=== PATIENT | female | born 1945 | race American Indian/Alaskan Native ===

== ENCOUNTER 2018-01-04 13:10 | Emergency (ER) | payer MEDICARE, OTHER ==
[2018-01-04 13:35] VITALS: BP 204/94
[2018-01-04] MEDS ORDERED: NACL 0.9% 1000 ML 1,000 ML IV ONE (13:35)
[2018-01-04 14:45] LABS: Bacteria,Urine 2+ /HPF (Negative); Bilirubin,Urine NEG (Negative); Blood,Urine SM (Negative); Color,Urine Straw (Yellow); Mucus,Urine FEW /HPF; Protein,Urine <15 mg/dL mg/dL (Negative); Urobilinogen,Urine < 2.0 mg/dL (<2.0)
[2018-01-04 15:08] LABS: Basophils # (Auto) 0.1 K/mm3 (0.0-0.1); Eosinophils % (Auto) 0.4 % (0.0-4.3); Hematocrit 40.8 % (30.3-42.9); Hemoglobin 13.5 gm/dl (10.1-14.3); Lymphocytes # (Auto) 1.6 K/mm3 (1.2-5.4); Lymphocytes % (Auto) 32.1 % (13.4-35.0); Mean Corpuscular HGB Conc 33 % (30-34); Mean Corpuscular Hemoglobin 29 pg (28-32); Mean Corpuscular Volume 89 fl (79-97); Monocytes # (Auto) 0.4 K/mm3 (0.0-0.8); Monocytes % (Auto) 8.1 % (0.0-7.3); Platelet Count 294 K/mm3 (140-440); Red Blood Count 4.58 M/mm3 (3.65-5.03); Red Cell Distribution Width 14.9 % (13.2-15.2)
[2018-01-04 15:24] LABS: Alanine Aminotransferase 15 units/L (7-56); Albumin 4.2 g/dL (3.9-5); BUN/Creatinine Ratio 17; Blood Urea Nitrogen 12 mg/dL (7-17); Calcium 10.1 mg/dL (8.4-10.2); Hemolysis Index 2
--- NOTE | 2018-01-04 17:10 | Emergency Department Report ---
ED Abdominal Pain HPI - General Chief Complaint: Abdominal Pain Stated Complaint: SEVERE PAIN/RIGHT SIDE Time Seen by Provider: 01/04/18 16:48 Source: patient Mode of arrival: Ambulatory Limitations: No Limitations - History of Present Illness Initial Comments: 72-year-old female with a past medical history hypertension and no previous abdominal surgeries presents to the hospital complaining of right lower quadrant pain that feels like gas. Symptoms started last night. Patient states that her right lower quadrant pain was so intense that she had difficulty walking and radiates to her rectum. Pain also moves around her abdomen. She is now pain free. Patient thinks that the pain is due to eating food for the last 2 weeks she had been told previously by her PMD not to eat fried foods. Patient also states she's been drinking more energy drinks lately for little boost in her energy. She did have energy drink this morning reports urinary frequency today. She has been noncompliant with her Lorsartan/Hctz for the past 3 days and has had to machine operator picker her refill at the pharmacy. She denies headache, chest pain, shortness of breath, dysuria, fever, nausea, vomiting, or diarrhea. Last bowel movement 2-3 days ago. Patient recently moved to the [facility] and does not have a PCP locally - Related Data Previous Rx's Medication Instructions Recorded Last Taken Type Mag Hydrox/Aluminum Hyd/Simeth 20 ml PO QID PRN #1 bottle 01/04/18 Unknown Rx [Maalox Advanced Suspension] Nitrofurantoin Monohyd/M-Cryst 100 mg PO BID #10 capsule 01/04/18 Unknown Rx [Macrobid 100 mg Capsule] Allergies Allergy/AdvReac Type Severity Reaction Status Date / Time No Known Allergies Allergy Unverified 01/04/18 13:35 ED Review of Systems ROS: Stated complaint: SEVERE PAIN/RIGHT SIDE Other details as noted in HPI Comment: All other systems reviewed and negative ED Past Medical Hx - Past Medical History Previous Medical History?: No Hx Hypertension: Yes - Surgical History Past Surgical History?: No - Social History Smoking Status: Never Smoker Substance Use Type: None - Medications Home Medications: Home Medications Medication Instructions Recorded Confirmed Last Taken Type Mag Hydrox/Aluminum Hyd/Simeth 20 ml PO QID PRN #1 bottle 01/04/18 Unknown Rx [Maalox Advanced Suspension] Nitrofurantoin Monohyd/M-Cryst 100 mg PO BID #10 capsule 01/04/18 Unknown Rx [Macrobid 100 mg Capsule] ED Physical Exam - General Limitations: No Limitations - Other Other exam information: General: No limitations, patient is alert in no acute distress Head exam: Atraumatic, normocephalic Eyes exam: Normal appearance ENT: Moist mucous membrane, normal oropharynx Neck exam: Normal inspection, full range of motion, no meningismus nontender Respiratory exam: Clear to auscultation bilateral, no wheezes, rales, crackles Cardiovascular: Normal rate and rhythm, normal heart sounds Abdomen: Soft, nondistended, and nontender, with normal bowel sounds, no rebound, or guarding Extremity: Full range of motion normal inspection no deformity Back: Normal Inspection, full range of motion, no tenderness Neurologic: Alert, oriented x3, cranial nerves intact, no motor or sensory deficit Psychiatric: normal affect, normal mood Skin: Warm, dry, intact ED Course Vital Signs 01/04/18 13:30 Temperature 97.6 F Pulse Rate 71 Respiratory 16 Rate Blood Pressure 204/94 O2 Sat by Pulse 98 Oximetry - Reevaluation(s) Reevaluation #1: 01/04/18 17:10 Repeat BP 158/70 without meds in ED ED Medical Decision Making - Lab Data Result diagrams: 01/04/18 14:35 01/04/18 14:35 Lab Results 01/04/18 01/04/18 01/04/18 Range/Units 14:07 14:35 14:35 WBC 5.0 (4.5-11.0) K/mm3 RBC 4.58 (3.65-5.03) M/mm3 Hgb 13.5 (10.1-14.3) gm/dl Hct 40.8 (30.3-42.9) % MCV 89 (79-97) fl MCH 29 (28-32) pg MCHC 33 (30-34) % RDW 14.9 (13.2-15.2) % Plt Count 294 (140-440) K/mm3 Lymph % (Auto) 32.1 (13.4-35.0) % [place] % (Auto) 8.1 H (0.0-7.3) % Eos % (Auto) 0.4 (0.0-4.3) % Baso % (Auto) 1.0 (0.0-1.8) % Lymph # 1.6 (1.2-5.4) K/mm3 Whitley # 0.4 (0.0-0.8) K/mm3 Eos # 0.0 (0.0-0.4) K/mm3 Baso # 0.1 (0.0-0.1) K/mm3 Seg Neutrophils % 58.4 (40.0-70.0) % Seg Neutrophils # 2.9 (1.8-7.7) K/mm3 Sodium 140 (137-145) mmol/L Potassium 3.8 (3.6-5.0) mmol/L Chloride 99.3 (98-107) mmol/L Carbon Dioxide 25 (22-30) mmol/L Anion Gap 20 mmol/L BUN 12 (7-17) mg/dL Creatinine 0.7 (0.7-1.2) mg/dL Estimated GFR > 60 ml/min BUN/Creatinine Ratio 17 % Glucose 74 (65-100) mg/dL Calcium 10.1 (8.4-10.2) mg/dL Total Bilirubin 0.90 (0.1-1.2) mg/dL AST 19 (5-40) units/L ALT 15 (7-56) units/L Alkaline Phosphatase 83 (35-129) units/L Total Protein 8.2 (6.3-8.2) g/dL Albumin 4.2 (3.9-5) g/dL Albumin/Globulin Ratio 1.1 % Urine Color Straw (Yellow) Urine Turbidity Clear (Clear) Urine pH 6.0 (5.0-7.0) Ur Specific [place] 1.002 L (1.003-1.030) Urine Protein <15 mg/dl (Negative) mg/dL Urine Glucose (UA) Neg (Negative) mg/dL Urine Ketones Neg (Negative) mg/dL Urine Blood Sm (Negative) Urine Nitrite Neg (Negative) Urine Bilirubin Neg (Negative) Urine Urobilinogen < 2.0 (<2.0) mg/dL Ur Leukocyte Esterase Neg (Negative) Urine WBC (Auto) 1.0 (0.0-6.0) /HPF Urine RBC (Auto) 2.0 (0.0-6.0) /HPF U Epithel Cells (Auto) 1.0 (0-13.0) /HPF Urine Bacteria (Auto) 2+ (Negative) /HPF Urine Mucus Few /HPF - Medical Decision Making Patient is nontender exam. Given urinary frequency complaints will be treated with Macrobid. Patient advised not to take any energy drinks because the caffeine may cause increase in her blood pressure, heart rate, intestinal cramps, and urinary frequency Patient encouraged to fill her BP medications and restart Will be given medication for gas as well Patient does not have any signs or symptoms of obstruction and no previous surgical history - Differential Diagnosis UTI, dyspepsia, constipation, gas, gallstones, renal colic, appendicitis Critical Care Time: No Critical care attestation.: If time is entered above; I have spent that time in minutes in the direct care of this critically ill patient, excluding procedure time. ED Disposition Clinical Impression: Intestinal cramps, Increased urinary frequency, HTN (hypertension), Noncompliance with medication regimen Disposition: TO HOME OR SELFCARE Is pt being admited?: No Does the pt Need Aspirin: No Condition: Stable Instructions: Abdominal Pain (ED), Hypertension (ED), Urinary Tract Infection in Women (ED) Additional Instructions: Take the medication as prescribed. Avoid fried food. Do not use energy drinks because the caffeine may cause increase in blood pressure, heart rate, intestinal cramps, and urination. Follow up with the primar care doctor or clinic provided. Fill your blood pressure prescription and restart your blood pressure medication. Prescriptions: Mag Hydrox/Aluminum Hyd/Simeth [Maalox Advanced Suspension] 20 ml PO QID PRN #1 bottle PRN Reason: Gas Pain Nitrofurantoin Monohyd/M-Cryst [Macrobid 100 mg Capsule] 100 mg PO BID #10 capsule Referrals: TYSON WOLFE MD [Staff Physician] - 3-5 Days [facility] [Provider Group] - 3-5 Days Time of Disposition: 17:15
== END 2018-01-04 17:21 | disposition home or self-care (01) ==
LOC: EDBD → ED 13:10
DX: N39.0 Urinary tract infection, site not specified (principal); I10 Essential (primary) hypertension; R10.9 Unspecified abdominal pain
CPT/HCPCS: 36415; 80053; 81001; 85025; 99283

== ENCOUNTER 2018-01-11 07:37 | Emergency (ER) | payer MEDICARE, OTHER ==
--- NOTE | 2018-01-11 10:30 | Emergency Department Report ---
Chief Complaint: Abdominal Pain Stated Complaint: SIDE PAIN Time Seen by Provider: 01/11/18 10:19 - HPI History of Present Illness: 73 yo AA F presents to the ED with the complaint of RLQ and right flank pain that has been going on for 1 week. No N/V, dysuria, vaginal bleeding, fever. She was seen here for the same symptoms on 01/04 and was diagnosed with HTN, Abd pain, UTI. She took the macrobid and an antacid without much relief. She denies any significant past medical history. She says that she just moved to the area and therefore does not have a primary care physician. - ROS Review of Systems: Positive for abdominal pain and flank pain Negative for fever, nausea, vomiting - Exam Vital Signs: Vital Signs 01/11/18 07:59 Temperature 97.6 F Pulse Rate 79 Respiratory 16 Rate Blood Pressure 165/77 O2 Sat by Pulse 100 Oximetry Physical Exam: There is some reproducible tenderness to palpation to the right lower quadrant. Heart and lung sounds are normal to auscultation. Patient does not appear to be in any acute distress. MSE screening note: Focused history and physical exam performed. Due to findings the following was ordered: I have ordered a CBC, CMP and urinalysis. I have ordered a two-view abdominal x -ray. ED Disposition for MSE Condition: Stable Instructions: Abdominal Pain (ED) Referrals: PRIMARY CARE [Primary Care Provider] - 3-5 Days
[2018-01-11 10:49] LABS: Eosinophils % (Auto) 0.4 % (0.0-4.3); Hemoglobin 13.2 gm/dl (10.1-14.3); Lymphocytes # (Auto) 1.5 K/mm3 (1.2-5.4); Lymphocytes % (Auto) 31.1 % (13.4-35.0); Mean Corpuscular HGB Conc 34 % (30-34); Mean Corpuscular Hemoglobin 30 pg (28-32); Mean Corpuscular Volume 89 fl (79-97); Monocytes # (Auto) 0.4 K/mm3 (0.0-0.8); Monocytes % (Auto) 8.9 % (0.0-7.3); Platelet Count 290 K/mm3 (140-440); Red Blood Count 4.39 M/mm3 (3.65-5.03); Red Cell Distribution Width 14.8 % (13.2-15.2)
[2018-01-11 11:04] LABS: Alanine Aminotransferase 11 units/L (7-56); Albumin 3.8 g/dL (3.9-5); BUN/Creatinine Ratio 15; Blood Urea Nitrogen 9 mg/dL (7-17); Calcium 9.5 mg/dL (8.4-10.2); Hemolysis Index 40
--- NOTE | 2018-01-11 11:36 | XRay Report ---
ABDOMEN, 2 views: History: Abdominal pain. There is no evidence of free air beneath the diaphragms. The gas pattern within the abdomen is unremarkable. There is no evidence of bowel dilatation, significant air-fluid levels, or pathologic calcifications. Organ shadows are unremarkable. Severe degenerative changes are noted in both hips and SI joints, right greater than left. IMPRESSION: Unremarkable abdomen.
[2018-01-11 14:40] VITALS: BP 172/85
[2018-01-11 14:51] LABS: Bilirubin,Urine NEG (Negative); Blood,Urine SM (Negative); Color,Urine Yellow (Yellow); Mucus,Urine FEW /HPF; Protein,Urine <15 mg/dL mg/dL (Negative); Urobilinogen,Urine < 2.0 mg/dL (<2.0); WBC,Urine < 1.0 /HPF (0.0-6.0)
--- NOTE | 2018-01-11 15:14 | Cat Scan Report ---
CT ABDOMEN PELVIS WITH CONTRAST: HISTORY: Left flank pain, abdominal pain. COMPARISON: none. TECHNIQUE: Helical CT in 1.25mm intervals following IV contrast. Sagittal and coronal reconstructions. FINDINGS: Lung bases: Normal. Liver: Within normal limits. 1 cm right hepatic lobe cyst is noted. Biliary system: There a few tiny calcified gallstones within the gallbladder. No biliary dilatation or inflammation. Pancreas: Normal. Spleen: Normal. Kidneys/ureters/bladder: Within normal limits. No evidence for nephrolithiasis or hydronephrosis. Adrenal glands: Normal. Aorta: Normal. Intestines: No oral contrast was administered which limits this exam. There are multiple diverticula in the distal colon. No acute inflammatory changes are appreciated to suggest acute diverticulitis. Appendix: Normal. Pelvic viscera: The uterus has been surgically removed or is small in size. No adnexal cyst or mass. Ascites: None. Adenopathy: None. Musculoskeletal: Moderate thoracolumbar spondylosis and severe osteoarthritis of both hips. No fracture or suspicious bony lesion. IMPRESSION: No acute process identified. No clear explanation for left flank pain. No evidence for nephrolithiasis or hydronephrosis. Diverticulosis of the distal colon. No findings to suggest acute diverticulitis. Cholelithiasis. Question hysterectomy versus small uterus.
--- NOTE | 2018-01-11 16:39 | Emergency Department Report ---
ED Abdominal Pain HPI - General Chief Complaint: Abdominal Pain Stated Complaint: SIDE PAIN Time Seen by Provider: 01/11/18 10:19 Source: patient Mode of arrival: Ambulatory Limitations: No Limitations - History of Present Illness Initial Comments: This is a 73-year-old female nontoxic, well nourished in appearance, no acute signs of distress presents to the ED with c/o of right lower abdominal pain 1 week. Patient denies any vomiting or nausea. Patient describes abdominal pain as cramping and aching with level of 3/10. Patient stated that abdominal pain radiates to right lower extremity. Patient denies chest pain, short of breath, fever, chills, headache, stiff neck, numbness or tingling. Patient denies any diarrhea or constipation. Patient denies any vaginal bleeding or discharge. Patient denies any recent travels. Patient denies any allergies. PMH includes HTN. MD Complaint: abdominal pain -: week(s) (1) Location: RLQ Radiation: other (right leg) Migration to: no migration Severity: mild Severity scale (0 -10): 3 Quality: aching Consistency: constant Improves With: nothing Worsens With: nothing Associated Symptoms: denies: nausea, vomiting, diarrhea, fever, chills, constipation, dysuria, hematemesis, hematochezia, melena, hematuria, anorexia, syncope - Related Data Previous Rx's Medication Instructions Recorded Last Taken Type Mag Hydrox/Aluminum Hyd/Simeth 20 ml PO QID PRN #1 bottle 01/04/18 Unknown Rx [Maalox Advanced Suspension] Nitrofurantoin Monohyd/M-Cryst 100 mg PO BID #10 capsule 01/04/18 Unknown Rx [Macrobid 100 mg Capsule] Cyclobenzaprine [Flexeril] 10 mg PO BID PRN #14 tablet 01/11/18 Unknown Rx Ibuprofen [Motrin] 600 mg PO Q8H PRN #30 tablet 01/11/18 Unknown Rx Allergies Allergy/AdvReac Type Severity Reaction Status Date / Time No Known Allergies Allergy Unverified 01/04/18 13:35 ED Review of Systems ROS: Stated complaint: SIDE PAIN Other details as noted in HPI Constitutional: denies: chills, fever Eyes: denies: eye pain, eye discharge, vision change ENT: denies: ear pain, throat pain Respiratory: denies: cough, shortness of breath, wheezing Cardiovascular: denies: chest pain, palpitations Endocrine: no symptoms reported Gastrointestinal: abdominal pain. denies: nausea, vomiting, diarrhea Genitourinary: denies: urgency, dysuria, discharge Musculoskeletal: back pain. denies: joint swelling, arthralgia Skin: denies: rash, lesions Neurological: denies: headache, weakness, paresthesias Psychiatric: denies: anxiety, depression Hematological/Lymphatic: denies: easy bleeding, easy bruising ED Past Medical Hx - Past Medical History Hx Hypertension: Yes - Surgical History Past Surgical History?: No - Social History Smoking Status: Never Smoker Substance Use Type: None - Medications Home Medications: Home Medications Medication Instructions Recorded Confirmed Last Taken Type Mag Hydrox/Aluminum Hyd/Simeth 20 ml PO QID PRN #1 bottle 01/04/18 Unknown Rx [Maalox Advanced Suspension] Nitrofurantoin Monohyd/M-Cryst 100 mg PO BID #10 capsule 01/04/18 Unknown Rx [Macrobid 100 mg Capsule] Cyclobenzaprine [Flexeril] 10 mg PO BID PRN #14 tablet 01/11/18 Unknown Rx Ibuprofen [Motrin] 600 mg PO Q8H PRN #30 tablet 01/11/18 Unknown Rx ED Physical Exam - General Limitations: No Limitations General appearance: alert, in no apparent distress - Head Head exam: Present: atraumatic, normocephalic - Eye Eye exam: Present: normal appearance Pupils: Present: normal accommodation - ENT ENT exam: Present: normal exam, mucous membranes moist - Neck Neck exam: Present: normal inspection, full ROM. Absent: tenderness, meningismus, lymphadenopathy - Respiratory Respiratory exam: Present: normal lung sounds bilaterally. Absent: respiratory distress, wheezes, rales, rhonchi, stridor, chest wall tenderness, accessory muscle use, decreased breath sounds, prolonged expiratory - Cardiovascular Cardiovascular Exam: Present: regular rate, normal rhythm, normal heart sounds. Absent: bradycardia, tachycardia, irregular rhythm, systolic murmur, diastolic murmur, rubs, gallop - GI/Abdominal GI/Abdominal exam: Present: soft, normal bowel sounds. Absent: distended, tenderness, guarding, rebound, rigid, diminished bowel sounds - Expanded GI/Abdominal Exam Expanded GI/Abdominal exam: Absent: psoas sign, obturator sign, heel tap sign, Biswas's sign, Rovsing's sign, tenderness at [place]bur[place]'s Point, ascites - Rectal Rectal exam: Present: deferred - Extremities Exam Extremities exam: Present: normal inspection, full ROM, normal capillary refill - Back Exam Back exam: Present: normal inspection, full ROM, paraspinal tenderness (right sided lumbar paraspinal area). Absent: tenderness, CVA tenderness (R), CVA tenderness (L), muscle spasm, vertebral tenderness, rash noted - Neurological Exam Neurological exam: Present: alert, oriented X3, normal gait - Psychiatric Psychiatric exam: Present: normal affect, normal mood - Skin Skin exam: Present: warm, dry, intact, normal color. Absent: rash ED Course Vital Signs 01/11/18 01/11/18 07:59 14:39 Temperature 97.6 F Pulse Rate 79 65 Respiratory 16 18 Rate Blood Pressure 165/77 Blood Pressure 172/85 [Left] O2 Sat by Pulse 100 100 Oximetry - Reevaluation(s) Reevaluation #1: 01/11/18 16:46 Patient is speaking in full sentences with no signs of distress noted. - Consultations Consultation #1: 01/11/18 16:47 Patient has been consulted with Dr. Ackerman about patient history, physical exam, and labs/CT results and examined and screened patient and agrees to ED plan of care and discharge plan of care. ED Medical Decision Making - Lab Data Result diagrams: 01/11/18 10:34 01/11/18 10:34 - Medical Decision Making This is a 73-year-old female that presents with right sided abdomen/lumbar pain. Patient is stable was examined by me. Upon exam, patient points to the lateral lumbar/abdomen area. Patient stated it radiates to right leg. There is no spinal tenderness. There is no cauda equina syndrome during examination. No bladder or bowel instability. Patient received Toradol 15 mg IV in the ED which preceded his symptoms has resolved and subsided. Labs unremarkable. CT with contrast of abdomen unremarkable. Patient is discharged with muscle relaxant and Motrin. Patient was instructed not to operate any machinery while taking muscle relaxant as they cause her drowsiness. Patient was referred to Follow-up with a primary care doctor in 3-5 days or if symptoms worsen and continue return to emergency room as soon as possible. At time of discharge, the patient does not seem toxic or ill in appearance. No acute signs of distress noted. Patient agrees to discharge treatment plan of care. No further questions noted by the patient. This chart is dictated with using [employer]ation [employer] Critical care attestation.: If time is entered above; I have spent that time in minutes in the direct care of this critically ill patient, excluding procedure time. ED Disposition Clinical Impression: Abdominal pain Qualifiers: Abdominal location: right lower quadrant Qualified Code(s): R10.31 - Right lower quadrant pain Low back pain Qualifiers: Chronicity: acute Back pain laterality: right Sciatica presence: with sciatica Sciatica laterality: sciatica of right side Qualified Code(s): M54.41 - Lumbago with sciatica, right side Disposition: TO HOME OR SELFCARE Is pt being admited?: No Does the pt Need Aspirin: No Condition: Stable Instructions: Abdominal Pain (ED), Cyclobenzaprine (By mouth), Ibuprofen (By mouth) Additional Instructions: Follow-up with your primary care doctor in 3-5 days or if symptoms worsen such as bladder or bowel stability, chest pain, short of breath, numbness or tingling sensation in extremities, headache, dizziness, visual changes, nausea vomiting, or abdominal pain, return back to emergency room as was possible. Take ibuprofen and Flexeril as prescribed. Do not operate heavy machinery while taking Flexeril due to sedation Prescriptions: Cyclobenzaprine [Flexeril] 10 mg PO BID PRN #14 tablet PRN Reason: Muscle Spasm Ibuprofen [Motrin] 600 mg PO Q8H PRN #30 tablet PRN Reason: Pain Referrals: PRIMARY MD JACKIE [Primary Care Provider] - 3-5 Days MARY WEBB MD [Staff Physician] - 3-[address] [facility] [Outside] - 3-5 Days [facility] [Outside] - 3-5 Days Forms: Work/School Release Form(ED)
[2018-01-11] MEDS ORDERED: TORADOL IV ONE (16:46)
== END 2018-01-11 17:06 | disposition home or self-care (01) ==
LOC: ED 07:37
DX: R10.31 Right lower quadrant pain (principal); M54.5 Low back pain; I10 Essential (primary) hypertension
CPT/HCPCS: 36415; 74019; 74177; 80053; 81001; 85025; 96374; 99284; J1885; Q9967

== ENCOUNTER 2021-02-16 18:57 | Emergency (ER) | payer MEDICARE, OTHER ==
[2021-02-16] MEDS ORDERED: ONDANSETRON 4 MG ODT TAB PO ONE (23:56)
[2021-02-16] MEDS ORDERED: oxyCODONE /ACETAMINOPHEN 5-325MG TAB PO ONE (23:56)
[2021-02-16] MEDS ORDERED: FAMOTIDINE 20 MG TAB PO ONE (23:57)
--- NOTE | 2021-02-17 00:05 | Emergency Department Report ---
ED Abdominal Pain HPI - General Chief Complaint: Abdominal Pain Stated Complaint: AB PAIN Source: patient Mode of arrival: Ambulatory Limitations: No Limitations - History of Present Illness Initial Comments: Patient is a 76-year-old -[place] female with a history of hypertension, chronic osteoarthritis, chronic back pain and foi-yozebbd-sqqdnxewc diabetes who presents to the ED with complaint of acute onset persistent bilateral flank pain for the last 2 weeks, worse in the last 4 days. Patient states that the pain is persistent and worse with any physical activity. Patient states that she had earlier been evaluated at an urgent care clinic but was advised to come to the ED for further evaluation because of a persistent pain. Patient denies nausea and vomiting, diarrhea, dysuria, urinary frequency and urgency, chest pain, shortness of breath, dizziness, syncope, numbness and tingling or weakness of upper and lower extremities bilaterally, neck pain, heavy lifting, fall or traumatic injury, fever and chills, nausea and vomiting. MD Complaint: abdominal pain, flank pain (bilateral flank pain) -: Sudden, week(s) (2) Location: epigastric, L flank, R flank, bilateral flank Radiation: epigastric, L flank, R flank, bilateral flank Migration to: no migration Severity: severe Severity scale (0 -10): 8 Quality: cramping, aching, sharp Consistency: constant Improves With: nothing Worsens With: nothing Associated Symptoms: denies other symptoms, nausea, anorexia. denies: vomiting, diarrhea, fever, chills, constipation, dysuria, hematemesis, hematochezia, melena, hematuria, syncope - Related Data Previous Rx's Medication Instructions Recorded Last Taken Type Mag Hydrox/Aluminum Hyd/Simeth 20 ml PO QID PRN #1 bottle 01/04/18 Unknown Rx [Maalox Advanced Suspension] Nitrofurantoin Monohyd/M-Cryst 100 mg PO BID #10 capsule 01/04/18 Unknown Rx [Macrobid 100 mg Capsule] Cyclobenzaprine [Flexeril] 10 mg PO BID PRN #14 tablet 01/11/18 Unknown Rx Ibuprofen [Motrin] 600 mg PO Q8H PRN #30 tablet 01/11/18 Unknown Rx Baclofen 20 mg PO Q12H PRN #24 tablet 02/17/21 Unknown Rx Ibuprofen [Motrin] 800 mg PO Q8HR PRN #30 tablet 02/17/21 Unknown Rx traMADoL [Ultram] 50 mg PO Q6HR PRN #12 tablet 02/17/21 Unknown Rx Allergies Allergy/AdvReac Type Severity Reaction Status Date / Time No Known Allergies Allergy Unverified 01/04/18 13:35 ED Review of Systems ROS: Stated complaint: AB PAIN Other details as noted in HPI Constitutional: denies: chills, fever Eyes: denies: eye pain, eye discharge, vision change ENT: denies: ear pain, throat pain Respiratory: denies: cough, shortness of breath, wheezing Cardiovascular: denies: chest pain, palpitations Endocrine: no symptoms reported Gastrointestinal: abdominal pain, nausea. denies: diarrhea Genitourinary: denies: urgency, dysuria, discharge Musculoskeletal: denies: back pain, joint swelling, arthralgia Skin: denies: rash, lesions Neurological: denies: headache, weakness, paresthesias Psychiatric: denies: anxiety, depression Hematological/Lymphatic: denies: easy bleeding, easy bruising ED Past Medical Hx - Past Medical History Hx Hypertension: Yes Hx Diabetes: Yes (prediabetes) Hx Arthritis: Yes - Social History Smoking Status: Never Smoker Substance Use Type: None - Medications Home Medications: Home Medications Medication Instructions Recorded Confirmed Last Taken Type Mag Hydrox/Aluminum Hyd/Simeth 20 ml PO QID PRN #1 bottle 01/04/18 Unknown Rx [Maalox Advanced Suspension] Nitrofurantoin Monohyd/M-Cryst 100 mg PO BID #10 capsule 01/04/18 Unknown Rx [Macrobid 100 mg Capsule] Cyclobenzaprine [Flexeril] 10 mg PO BID PRN #14 tablet 01/11/18 Unknown Rx Ibuprofen [Motrin] 600 mg PO Q8H PRN #30 tablet 01/11/18 Unknown Rx Baclofen 20 mg PO Q12H PRN #24 tablet 02/17/21 Unknown Rx Ibuprofen [Motrin] 800 mg PO Q8HR PRN #30 tablet 02/17/21 Unknown Rx traMADoL [Ultram] 50 mg PO Q6HR PRN #12 tablet 02/17/21 Unknown Rx ED Physical Exam - General Limitations: No Limitations General appearance: alert, in no apparent distress - Head Head exam: Present: atraumatic, normocephalic, normal inspection - Eye Eye exam: Present: normal appearance, PERRL, EOMI Pupils: Present: normal accommodation - ENT ENT exam: Present: normal exam, normal orophraynx, mucous membranes moist, TM's normal bilaterally, normal external ear exam - Neck Neck exam: Present: normal inspection, full ROM - Respiratory Respiratory exam: Present: normal lung sounds bilaterally. Absent: respiratory distress, wheezes, rales, rhonchi, stridor, chest wall tenderness, accessory muscle use, decreased breath sounds, prolonged expiratory - Cardiovascular Cardiovascular Exam: Present: regular rate, normal rhythm, normal heart sounds. Absent: systolic murmur, diastolic murmur, rubs, gallop - GI/Abdominal GI/Abdominal exam: Present: soft, tenderness (Bilateral flank tenderness as well as epigastric tenderness), normal bowel sounds. Absent: guarding, rebound, hyperactive bowel sounds, hypoactive bowel sounds - Extremities Exam Extremities exam: Present: normal inspection, full ROM, normal capillary refill - Back Exam Back exam: Present: normal inspection, full ROM. Absent: tenderness, CVA tenderness (R), CVA tenderness (L), muscle spasm, paraspinal tenderness - Neurological Exam Neurological exam: Present: alert, oriented X3, CN II-XII intact, normal gait, reflexes normal - Psychiatric Psychiatric exam: Present: normal affect, normal mood - Skin Skin exam: Present: warm, dry, intact, normal color. Absent: rash ED Course Vital Signs 02/16/21 23:45 Temperature 98.1 F Pulse Rate 74 Respiratory 18 Rate Blood Pressure 153/73 O2 Sat by Pulse 98 Oximetry ED Medical Decision Making - Lab Data Result diagrams: 02/16/21 23:59 02/16/21 23:59 - Radiology Data Radiology results: report reviewed, image reviewed [address] [address] Cat Scan Report Signed Patient: NICOLLE GANDHI MR#: [id number] 9 : 1945 Acct:[id number] Age/Sex: 76 / F ADM Date: 02/16/21 Loc: ED Attending Dr: Ordering Physician: ANTONY TEMPLE Date of Service: 02/16/21 Procedure(s): CT abdomen pelvis w con Accession Number(s): [id number] cc: ANTONY TEMPLE CT ABDOMEN AND PELVIS WITH CONTRAST INDICATION / CLINICAL INFORMATION: bilateral flank. TECHNIQUE: Axial CT images were obtained through the abdomen and pelvis after Omnipaque 300, 100 cc [address] scans at this location are performed using CT dose reduction for ALARA by means of automated exposure control. COMPARISON: 01/11/2018. FINDINGS: LOWER CHEST: No significant abnormality. LIVER: 8 mm right hepatic cyst is unchanged. GALLBLADDER: Calcified gallstones. BILE DUCTS: No significant abnormality. PANCREAS: No significant abnormality. SPLEEN: No significant abnormality. ADRENALS: No significant abnormality. RIGHT KIDNEY / URETER: No significant abnormality. LEFT KIDNEY / URETER: No significant abnormality. STOMACH / SMALL BOWEL: No significant abnormality. COLON: Scattered noninflamed diverticulosis. APPENDIX: No significant abnormality. PERITONEUM: No free fluid. No free air. No fluid collection. LYMPH NODES: No significant adenopathy. VASCULAR STRUCTURES: No significant abnormality. URINARY BLADDER: No significant abnormality. REPRODUCTIVE ORGANS: No significant abnormality. ADDITIONAL FINDINGS: None. SKELETAL SYSTEM: Previous bilateral hip replacement. IMPRESSION: 1. Noninflamed colonic diverticulosis. 2. Calcified gallstones. Signer Name: Kenrick Stearns MD Signed: 02/17/2021 1:24 AM Workstation Name: [id number] Transcribed By: ES Dictated By: Kenrick Stearns MD Electronically Authenticated By: Kenrick Stearns MD Signed Date/Time: 02/17/21123 DD/ 9 TD/TT: - Medical Decision Making This is a 76-year-old -[place] female with a history of hypertension, chronic osteoarthritis, chronic back pain and ktd-gxtrysr-rbosmcnpd diabetes who presents to the ED with complaint of acute onset persistent bilateral flank pain for the last 2 weeks, worse in the last 4 days. Patient states that the pain is persistent and worse with any physical activity. Patient states that she had earlier been evaluated at an urgent care clinic but was advised to come to the ED for further evaluation because of a persistent pain. In the ED, patient is alert and oriented x3 and is not in any distress. Patient was treated for pain in the ED and also given antiemetics and antacids. Abdomen pelvis CT scan with contrast showed no acute abnormalities. Lab test results were reviewed and are all nonactionable including urinalysis. On reevaluation, patient's pain is well controlled medications. Patient symptoms are likely due to muscle spasm or muscle strain of her back. Patient was therefore discharged home on pain medications and muscle relaxant and was advised to follow-up with her primary care physician in 7 to 10 days for reevaluation or return to the ED immediately if symptoms get worse - Differential Diagnosis muscle spasm; muscle strain; UTI; Kidney stones; GERD Critical care attestation.: If time is entered above; I have spent that time in minutes in the direct care of this critically ill patient, excluding procedure time. ED Disposition Clinical Impression: Acute flank pain, Acute epigastric pain, Spasm of muscle of lower back GERD (gastroesophageal reflux disease) Qualifiers: Esophagitis presence: esophagitis presence not specified Qualified Code(s): K21.9 - Gastro-esophageal reflux disease without esophagitis Disposition: HOME / SELF CARE / HOMELESS Is pt being admited?: No Does the pt Need Aspirin: No Condition: Stable Instructions: Abdominal Pain, Adult, [id number], Flank Pain, Adult, [id number], Abdominal Pain (ED), Muscle Cramps and Spasms, [id number], Gastroesophageal Reflux Disease, Adult, [id number] Additional Instructions: All lab test results were reviewed and are all nonactionable. Abdomen pelvis CT scan with contrast showed no acute abnormalities. Symptoms are likely due to muscle spasm and muscle strain of your back. Therefore take medication with food, drink plenty of fluids and follow-up with your primary care physician in 5 to 7 days for reevaluation. Return to the ED immediately if symptoms get worse. Prescriptions: Baclofen 20 mg PO Q12H PRN #24 tablet PRN Reason: Muscle Spasm Ibuprofen [Motrin] 800 mg PO Q8HR PRN #30 tablet PRN Reason: Pain , Severe (7-10) traMADoL [Ultram] 50 mg PO Q6HR PRN #12 tablet PRN Reason: Pain Referrals: [facility] [Provider Group] - 3-5 Days Time of Disposition: 02:52 Print Language: MONGOLIAN
[2021-02-17 00:35] LABS: Basophils # (Auto) 0.1 K/mm3 (0.0-0.1); Basophils % (Auto) 1.1 % (0.0-1.8); Eosinophils # (Auto) 0.1 K/mm3 (0.0-0.4); Eosinophils % (Auto) 0.6 % (0.0-4.3); Hematocrit 40.6 % (30.3-42.9); Hemoglobin 13.7 gm/dl (10.1-14.3); Lymphocytes # (Auto) 2.9 K/mm3 (1.2-5.4); Lymphocytes % (Auto) 31.6 % (13.4-35.0); Mean Corpuscular HGB Conc 34 % (30-34); Mean Corpuscular Volume 89 fl (79-97); Monocytes # (Auto) 0.9 K/mm3 (0.0-0.8); Platelet Count 344 K/mm3 (140-440); Red Blood Count 4.58 M/mm3 (3.65-5.03); Red Cell Distribution Width 15.1 % (13.2-15.2)
[2021-02-17 01:00] LABS: Alanine Aminotransferase 15 units/L (7-56); Albumin 4.3 g/dL (3.9-5); BUN/Creatinine Ratio 15; Blood Urea Nitrogen 15 mg/dL (7-17); Calcium 10.3 mg/dL (8.4-10.2); Hemolysis Index 0
[2021-02-17 01:04] LABS: Bacteria,Urine 4+ /HPF (Negative); Bilirubin,Urine NEG (Negative); Blood,Urine MOD (Negative); Color,Urine Yellow (Yellow); Mucus,Urine FEW /HPF; Protein,Urine <15 mg/dL mg/dL (Negative); Urobilinogen,Urine < 2.0 mg/dL (<2.0)
--- NOTE | 2021-02-17 01:29 | Cat Scan Report ---
CT ABDOMEN AND PELVIS WITH CONTRAST INDICATION / CLINICAL INFORMATION: bilateral flank. TECHNIQUE: Axial CT images were obtained through the abdomen and pelvis after Omnipaque 300, 100 cc I V contrast. All CT scans at this location are performed using CT dose reduction for ALARA by means o f automated exposure control. COMPARISON: 01/11/2018. FINDINGS: LOWER CHEST: No significant abnormality. LIVER: 8 mm right hepatic cyst is unchanged. GALLBLADDER: Calcified gallstones. BILE DUCTS: No significant abnormality. PANCREAS: No significant abnormality. SPLEEN: No significant abnormality. ADRENALS: No significant abnormality. RIGHT KIDNEY / URETER: No significant abnormality. LEFT KIDNEY / URETER: No significant abnormality. STOMACH / SMALL BOWEL: No significant abnormality. COLON: Scattered noninflamed diverticulosis. APPENDIX: No significant abnormality. PERITONEUM: No free fluid. No free air. No fluid collection. LYMPH NODES: No significant adenopathy. VASCULAR STRUCTURES: No significant abnormality. URINARY BLADDER: No significant abnormality. REPRODUCTIVE ORGANS: No significant abnormality. ADDITIONAL FINDINGS: None. SKELETAL SYSTEM: Previous bilateral hip replacement. IMPRESSION: 1. Noninflamed colonic diverticulosis. 2. Calcified gallstones. Signer Name: Kenrick Stearns MD Signed: 02/17/2021 1:24 AM Workstation Name: [id number]
[2021-02-17 04:33] VITALS: BP 112/69
== END 2021-02-17 03:20 | disposition home or self-care (01) ==
LOC: ED 18:57
DX: K21.9 Gastro-esophageal reflux disease without esophagitis (principal); M62.830 Muscle spasm of back; R10.13 Epigastric pain; I10 Essential (primary) hypertension; E11.9 Type 2 diabetes mellitus without complications; M19.90 Unspecified osteoarthritis, unspecified site; Z79.899 Other long term (current) drug therapy
CPT/HCPCS: 36415; 74177; 80053; 81001; 83690; 84484; 85025; 99284; Q9967; Q0162